=== PATIENT | female | born 1980 | race Caucasian/White ===

== ENCOUNTER 2016-07-31 14:33 | Inpatient (IN) | payer OTHER ==
[~2016-07-31 14:33] MED LIST: ZYRT10TA12 PO
--- NOTE | 2016-08-02 12:29 | MH ---
cc: ROJAS CARR M.D. DATE OF ADMISSION: 08/03/2016 ADMITTING DIAGNOSIS: 1. Term . 2. Advanced maternal age. 3. Breech presentation. HISTORY OF PRESENT ILLNESS: The patient is a 36-year-old white female para 0-0-1-0 with last menstrual period of 11/05/2015 and estimated date of confinement of 08/10/2016. Her course has been benign. Her first TM screen was normal. Her cell free DNA testing was normal. At term baby, the baby has remained breech and she is now admitted for elective section due to the breech presentation. PAST MEDICAL HISTORY: 1. Previous surgery 1995 she had ACL repair of left side. 2. She had D&C for spontaneous April of 2015. MEDICATIONS: Vitamins. ALLERGIES: ENVIRONMENTAL. TRANSFUSIONS None. SOCIAL HISTORY: She is . She is a massage therapist. Alcohol, tobacco and drugs are none. FAMILY HISTORY: Noncontributory. PHYSICAL EXAMINATION: GENERAL: A well-nourished well-developed white female. VITAL SIGNS: Stable. HEAD, EYES, EARS, NOSE, THROAT: Exam is normal. CHEST: Chest is clear. HEART: Regular rate. BREASTS: The breasts are symmetrical. ABDOMEN: The abdomen is gravid. Estimated weight of about 3400 grams. PELVIS: Cervix closed. Normal as above. PLAN: She is now admitted for section. While in the office, I explained the procedure, the risks, benefits, complications including but not limited to , infection, bleeding and the patient has accepted. MD CHARLIE Morales/LAURYN /11:50 AM /12:20 PM MEL
[2016-08-03] VITALS (13 sets, daily range): BP systolic 98–114; BP diastolic 51–77; PULSE 62–91; RESP 16–18; TEMP 97.6–98.3; O2SAT 98–100
[2016-08-03 09:23] LABS: AUTOMATED NEUTROPHIL # 7.6 TH/MM3 (1.8-7.7); BASOPHIL % 0.3 % (0.0-2.0); EOSINOPHIL # 0.1 TH/MM3 (0-0.4); EOSINOPHIL % 1.3 % (0.0-4.0); HEMATOCRIT 34.4 % (35.0-46.0); HEMO FLAGS DIFF FINAL; LYMPH % 16.5 % (9.0-44.0); LYMPHOCYTE # 1.7 TH/MM3 (1.0-4.8); MEAN CELL VOLUME 86.2 FL (80.0-100.0); MEAN CORPUSCULAR HEMOGLOBIN 30.2 PG (27.0-34.0); MONO % 6.2 % (0.0-8.0); NEUT % 75.7 % (16.0-70.0); PLATELET COUNT 210 TH/MM3 (150-450); RED BLOOD COUNT 3.99 MIL/MM3 (4.00-5.30); RED CELL DISTRIBUTION WIDTH 15.3 % (11.6-17.2); WHITE BLOOD COUNT 10.1 TH/MM3 (4.0-11.0)
[2016-08-03 09:31] LABS: BACTERIA, URINE RARE /hpf; BLOOD, URINE SMALL (NEG); CALCIUM OXALATE CRYSTALS,URINE MOD /hpf; COMMENT (UR) CULT NOT INDICATED; CULTURE IF INDICATED CULT NOT INDICATED; GLUCOSE,URINE NEG (NEG); KETONE, URINE NEG (NEG); MUCUS URINE FEW /lpf (OCC); NITRITE,URINE NEG (NEG); SQUAMOUS EPITHELIAL CELL URINE 1 /hpf (0-5); URINE COLOR YELLOW (YELLW/STRAW)
[2016-08-03] MEDS ORDERED: CITRIC ACID-SODIUM CITRATE LIQ 30 ML UDC PO SCH (09:45)
[2016-08-03] MEDS ORDERED: LACTATED RINGER'S 1000 ML IV SCH (09:45)
[2016-08-03] MEDS ORDERED: LACTATED RINGER'S 1000 ML IV ONE (09:45)
[2016-08-03] MEDS ORDERED: OXYTOCIN 10 UNIT/ML AMP ONE (09:47)
[2016-08-03] MEDS ORDERED: MORPHINE SULFATE PF 5 MG/10 ML VIAL ONE (09:47)
[2016-08-03] MEDS ORDERED: ONDANSETRON HCL 4 MG/2 ML VIAL ONE (09:47)
[2016-08-03] MEDS ORDERED: ceFAZolin INJ 1,000 MG VIAL ONE (09:47)
[2016-08-03] MEDS ORDERED: ACETAMINOPHEN 1000 MG/100 ML VIAL IV ONE (09:47)
[2016-08-03] MEDS ORDERED: EPIDURAL-NALOXONE HCL 0.4 MG/ML AMP IV PRN (10:00)
[2016-08-03] MEDS ORDERED: EPIDURAL-DIPHENHYDRAMINE HCL 50 MG CAP PO PRN (10:00)
[2016-08-03] MEDS ORDERED: EPIDURAL-NO SYSTEMIC NARCOTICS PRN (10:00)
[2016-08-03] MEDS: ACETAMINOPHEN 1000 MG/100 ML VIAL IV SCH ×2 (10:00→18:37)
[2016-08-03] MEDS ORDERED: EPIDURAL-DIPHENHYDRAMINE HCL 50 MG/ML VIAL IV PUSH PRN (10:00)
[2016-08-03] MEDS ORDERED: EPIDURAL-DO NOT ADMINISTER ANTICOAGULANTS PRN (10:00)
[2016-08-03] MEDS ORDERED: ceFAZolin 2 GM PREMIX 50 ML IV SCH (10:00)
[2016-08-03] MEDS ORDERED: ePHEDrine/NS 25 MG/5 ML SYR IV ONE (10:15)
[2016-08-03] MEDS ORDERED: LACTATED RINGER'S 1,000 ML BAG IV ONE (10:15)
[2016-08-03] MEDS ORDERED: OXYTOCIN 30 UNITS-500ML PREMIX 500 ML IV ONE (11:00)
[2016-08-03] MEDS ORDERED: KETOROLAC TROMETHAMINE 60 MG/2 ML (IM) VIAL IM PRN (11:00)
[2016-08-03] MEDS ORDERED: KETOROLAC TROMETHAMINE 30 MG/ML (IVP) VIAL IV PUSH PRN (11:00)
[2016-08-03] MEDS ORDERED: MEASLES, MUMPS, RUBELLA VACCINE 0.5 ML VIAL SQ ONE (11:00)
[2016-08-03] MEDS ORDERED: oxyCODONE/ACETAMINOPHEN 5 MG/325 MG TAB PO PRN (11:00)
[2016-08-03] MEDS ORDERED: ZOLPIDEM TARTRATE 5 MG TAB PO PRN (11:00)
[2016-08-03] MEDS ORDERED: ONDANSETRON HCL 4 MG/2 ML VIAL IVP PRN (11:00)
[2016-08-03] MEDS ORDERED: SODIUM CHLORIDE 0.9% FLUSH 5 ML FLUSH IV PRN (11:00)
[2016-08-03] MEDS ORDERED: LACTATED RINGER'S 1000 ML INJ 1,000 ML IV SCH (13:04)
[2016-08-03] MEDS ORDERED: OXYTOCIN 30 UNITS-500ML PREMIX 500 ML IV PRN (18:15)
[2016-08-03] MEDS: SODIUM CHLORIDE 0.9% FLUSH 5 ML FLUSH IV SCH (21:00)
[2016-08-04] VITALS: RESP 16
[2016-08-04 02:00] VITALS: RESP 15
[2016-08-04] MEDS: ACETAMINOPHEN 1000 MG/100 ML VIAL IV SCH (02:34)
[2016-08-04 03:00] VITALS: RESP 15
[2016-08-04 04:04] VITALS: BP 106/59; PULSE 66; RESP 18; TEMP 98.1
[2016-08-04 06:04] LABS: AUTOMATED NEUTROPHIL # 10.3 TH/MM3 (1.8-7.7); BASOPHIL % 0.3 % (0.0-2.0); EOSINOPHIL # 0.1 TH/MM3 (0-0.4); EOSINOPHIL % 0.8 % (0.0-4.0); HEMATOCRIT 33.6 % (35.0-46.0); HEMO FLAGS DIFF FINAL; LYMPH % 9.6 % (9.0-44.0); LYMPHOCYTE # 1.2 TH/MM3 (1.0-4.8); MEAN CELL VOLUME 86.4 FL (80.0-100.0); MEAN CORPUSCULAR HEMOGLOBIN 30.7 PG (27.0-34.0); MEAN CORPUSCULAR HGB CONC 35.5 % (32.0-36.0); MONO % 6.6 % (0.0-8.0); NEUT % 82.7 % (16.0-70.0); PLATELET COUNT 186 TH/MM3 (150-450); RED BLOOD COUNT 3.89 MIL/MM3 (4.00-5.30); RED CELL DISTRIBUTION WIDTH 15.1 % (11.6-17.2); WHITE BLOOD COUNT 12.5 TH/MM3 (4.0-11.0)
[2016-08-04 06:27] LABS: BICARBONATE 25.6 MEQ/L (21.0-32.0); POTASSIUM 3.8 MEQ/L (3.5-5.1)
[2016-08-04 07:40] VITALS: BP 113/69; PULSE 74; RESP 18; TEMP 98.1
[2016-08-04] MEDS: IBUPROFEN 600 MG TAB PO PRN ×3 (08:23→19:00)
[2016-08-04] MEDS: DOCUSATE SODIUM 50 MG/SENNA 8.6 MG TAB PO PRN ×2 (08:24→18:59)
[2016-08-04] MEDS: oxyCODONE/ACETAMINOPHEN 5 MG/325 MG TAB PO PRN ×3 (09:52→21:40)
[2016-08-04 19:00] VITALS: BP 123/77; PULSE 70; RESP 18; TEMP 97.8
[2016-08-04] MEDS: SIMETHICONE 80 MG CHEWABLE TAB PO PRN (21:43)
[2016-08-05] MEDS: IBUPROFEN 600 MG TAB PO PRN ×3 (01:41→18:07)
[2016-08-05] MEDS: oxyCODONE/ACETAMINOPHEN 5 MG/325 MG TAB PO PRN ×4 (01:41→18:06)
[2016-08-05] MEDS: SIMETHICONE 80 MG CHEWABLE TAB PO PRN ×3 (01:41→18:07)
[2016-08-05] MEDS: DOCUSATE SODIUM 50 MG/SENNA 8.6 MG TAB PO PRN ×2 (06:13→11:25)
[2016-08-05 07:20] VITALS: BP 110/75; PULSE 72; RESP 16; TEMP 98.3
--- NOTE | 2016-08-05 08:21 | MP ---
cc: BRUNOROJAS DATE OF SURGERY 08/03/2016 PREOPERATIVE DIAGNOSES 1. Term . 2. Advanced maternal age, 36. 3. Laz breech presentation. POSTOPERATIVE DIAGNOSES 1. Term . 2. Advanced maternal age, 36. 3. Laz breech presentation. 4. Delivered. PROCEDURE Primary low transverse section. ANESTHESIA Spinal. SURGEON Rojas Boyd MD RADIOLOGY TECH RASHEEDA Zee ESTIMATED BLOOD LOSS About 500 cc. FLUIDS 1.5 liters crystalloid. OBJECTIVE FINDINGS Following the induction of adequate spinal anesthesia, the patient was prepped and draped supine on the operating table in the left lateral tilt position in the usual sterile fashion with the bladder being drained via Reyes catheterization. The abdomen was opened through a Pfannenstiel incision using a knife to cut down through the skin to the fascia. The fascia was opened transversely, stripped from the muscles. The rectus muscle was split in the midline and the peritoneum opened sharply without incident. The bladder flap was taken down sharply, retracted inferiorly with a Steve blade. The lower uterine segment was incised transversely with a knife, extended with blunt dissection, the membranes were ruptured revealing clear fluid. The baby was in the left sacral transverse position. With gentle traction and fundal pressure, delivery progressed easily and, once each arm was reduced, the head easily slipped through the uteroabdominal wound. The mouth was suctioned, the cord clamped and cut and the baby passed to the awaiting team, a viable, vigorous female. Apgars were 8 and 9, weight 7 pounds, 9 ounces. Cord blood was collected for typing. The placenta was collected for donation and the uterine cavity wiped clean with laps. The uterus was exteriorized and closed in two layers of running suture, the first with a running locking stitch of 0 Vicryl and the second with a running imbricating stitch of 0 Vicryl. Posterior inspection revealed a normal uterus, tubes and ovaries, normal cul-de-sacs. The uterus was now replaced in the peritoneal cavity, irrigation performed. No bleeding was evident and the bladder flap was closed with a running stitch of 0 Vicryl. All laps and retractors were removed, counts were correct. The anterior peritoneum was closed with a running stitch of 2-0 Vicryl, the fascia closed with a running locking stitch of 0 Vicryl from corner to midline and tied, the subcu with a running 3-0 Vicryl and the skin with a running subcuticular 3-0 Monocryl. Dermabond was applied. All counts were correct and the patient was awake and taken to the recovery room in good condition. MD CHARLIE Morales/BRIAN /10:53 AM /8:01 AM
[2016-08-05] MEDS ORDERED: DIPHTH/TETANUS/ACEL PERTUSSIS (BOOSTER) 0.5 ML VIAL/PFS IM ONE (09:00)
[2016-08-06] MEDS: SIMETHICONE 80 MG CHEWABLE TAB PO PRN ×2 (00:31→06:31)
[2016-08-06] MEDS: DOCUSATE SODIUM 50 MG/SENNA 8.6 MG TAB PO PRN (00:31)
[2016-08-06] MEDS: IBUPROFEN 600 MG TAB PO PRN ×2 (00:31→06:31)
[2016-08-06] MEDS: oxyCODONE/ACETAMINOPHEN 5 MG/325 MG TAB PO PRN ×2 (00:31→06:31)
[2016-08-06 07:27] VITALS: BP 113/73; PULSE 61; RESP 12; TEMP 97.7
--- NOTE | 2016-08-06 08:25 | HHI.DCPOC ---
Discharge Care Plan Report Symptoms to Your Doctor -Temperate above 100.5 degrees -Redness, of incision or excessive or foul smelling drainage -Unusual pain or calf pain -Increased vaginal bleeding -Painful or difficulty urinating -Feelings of extreme sadness or anxiety after 2 weeks Goals to Promote Your Health * To prevent worsening of your condition and complications * To maintain your health at the optimal level Directions to Meet Your Goals Take your medications as prescribed Follow your dietary instruction Follow activity as directed Ensure plenty of rest for recovery Drink fluids for hydration Keep your appointments as scheduled Take your immunizations and boosters as scheduled If your symptoms worsen call your PCP, if no PCP go to Urgent Care Center or Emergency Room Smoking is Dangerous to Your Health. Avoid second hand smoke Call the 24-hour crisis hotline for domestic abuse at Hao Boyd MD August 06, 2016 08:25
[2016-08-06] MEDS: SODIUM CHLORIDE 0.9% FLUSH 5 ML FLUSH IV SCH (08:33)
--- NOTE | 2016-08-06 15:50 | MD ---
cc: ROJAS CARR M.D. ADMISSION DATE: 08/03/2016 DISCHARGE DATE: 08/06/2016 ADMITTING DIAGNOSIS Term , cecile breech, advanced maternal age. DISCHARGE DIAGNOSIS Term , cecile breech, advanced maternal age. PROCEDURE Primary low transverse section on 08/03/2016 HISTORY OF PRESENT ILLNESS The patient is a 36-year-old white female para 0-0-1-0 with an EDC of 08/10/2016. Her course has been benign. Her first TM screen and self testing were normal. At term, the baby remained in a breech presentation and she was admitted for elective . On 08/03/2016, had a viable vigorous female 's were 8 and 9, weight 7 pounds 9 ounces. The baby is named Lissette and she is breast feeding. did well, discharged home in excellent condition on 08/06/2016. Advised NPV, light activity, no driving, return to see me in one week. She is call for abnormal pain, bleeding, temperature, signs of infection or depression. She was given a prescription for Percocet 5, one to two p.o. q.4 h p.r.n. pain #60. MD CHARLIE Morales/ADELA /8:32 AM /3:48 PM
== END 2016-08-06 11:27 | disposition home or self-care (01) | DRG 766 ==
LOC: H2EB 08-03 08:12 → H1EA 08-03 12:35
PROVIDERS: ADMIT Obstetrics & Gynecology; ATTEND Obstetrics & Gynecology
PROC: 10D00Z1 Extraction of Products of Conception, Low, Open Approach (ICD-10-PCS; principal; 2016-08-03)
DX: O32.1XX0 Maternal care for breech presentation, not applicable or unspecified (principal); O09.523 Supervision of elderly multigravida, third trimester; Z3A.39 39 weeks gestation of pregnancy; Z37.0 Single live birth
CPT/HCPCS: 59025; 76815; 80048; 81001; 85025; 86850; 86900; 86901; 90715; J0131; J0690; J2274; J2405; J2590; J7120